=== PATIENT | female | born 1995 | race Caucasian/White ===

== ENCOUNTER 2016-03-31 17:45 | Emergency (ER) | payer BC ==
[2016-03-31 18:19] VITALS: BP 143/78
--- NOTE | 2016-03-31 18:55 | UC ---
Complaint Female HPI - HPI Summary HPI Summary: complaint of burning of urination that started yesterday increased frequency urgency has had blood in urine today denies fever and chills denies back pain, and abdmoinal pain hasn't tried any medication for pain - History Of Current Complaint Chief Complaint: UCGU Stated Complaint: URINARY Time Seen by Provider: 03/31/16 18:32 Hx Obtained From: Patient Hx Last Menstrual Period: 03/25/16 - Allergies/Home Medications Allergies/Adverse Reactions: Allergies Allergy/AdvReac Type Severity Reaction Status Date / Time Shellfish Allergy Allergy Anaphylatic Verified 03/31/16 18:19 Shock Home Medications: Home Medications Hydrochlorothiazide [Microzide-] 12.5 mg PO DAILY 03/31/16 [History Confirmed ] Norgestimate-Ethinyl Estradiol [Trinessa 0.18/0.215/0.25 mg-35 Mcg] 1 tab PO DAILY 03/31/16 [History Confirmed 03/31/16] PMH/Surg Hx/FS Hx/Imm Hx Previously Healthy: Yes Endocrine History Of: Denies: Diabetes, Thyroid Disease Cardiovascular History Of: Reports: Hypertension Denies: Cardiac Disorders Respiratory History Of: Reports: Asthma - Surgical History Surgical History: Yes Surgery Procedure, Year, and Place: right shoulder - Family History Known Family History: Negative: Cardiac Disease, Hypertension, Diabetes - Social History Occupation: Student Lives: With Family Alcohol Use: Occasionally Substance Use Type: None Smoking Status (MU): Never Smoked Tobacco - Immunization History Vaccination Up to Date: Yes Review of Systems Constitutional: Negative Skin: Negative Eyes: Negative ENT: Negative Respiratory: Negative Cardiovascular: Negative Gastrointestinal: Abdominal Pain Genitourinary: Dysuria, Hematuria, Frequency, Urgency Motor: Negative Neurovascular: Negative Musculoskeletal: Negative Neurological: Negative Psychological: Negative All Other Systems Reviewed And Are Negative: Yes Physical Exam Triage Information Reviewed: Yes Appearance: No Pain Distress, Well-Nourished Vital Signs: Initial Vital Signs Temp 98.8 F 03/31/16 18:12 Pulse 128 03/31/16 18:12 Resp 18 03/31/16 18:12 BP 143/78 03/31/16 18:12 Pulse Ox 97 03/31/16 18:12 Vital Signs Reviewed: Yes Eyes: Positive: Conjunctiva Clear ENT: Positive: Normal ENT inspection Neck: Positive: No Lymphadenopathy Respiratory: Positive: Lungs clear, Normal breath sounds, No respiratory distress Cardiovascular: Positive: RRR, No Murmur, Pulses Normal Abdomen Description: Positive: Nontender, Soft. Negative: CVA Tenderness (R), CVA Tenderness (L), Distended, Guarding Bowel Sounds: Positive: Present Musculoskeletal: Positive: No Edema Neurological: Positive: Alert Psychological Exam: Normal Skin Exam: Normal Complaint Female Dx - Course Course Of Treatment: exam completed - Differential Dx/Diagnosis Differential Diagnosis/HQI/PQRI: Urinary Tract Infection Provider Diagnoses: UTI Discharge - Discharge Plan Condition: Stable Disposition: HOME Prescriptions: Nitrofurantoin Monohyd Macro [Macrobid] 100 mg PO BID #10 cap Phenazopyridine TAB* [Pyridium TAB*] 100 mg PO TID #6 tab Patient Education Materials: Urinary Tract Infection in Women (ED) Referrals: Soy Gonzales MD [Primary Care Provider] - Additional Instructions: Please take antibiotic as directed. Increase fluids and rest Take acetaminophen for fever or pain Please review your discharge instructions. If your symptoms do not improve please call your primary care provider or return to urgent care
== END 2016-03-31 19:03 | disposition home or self-care (01) ==
LOC: UCCORT 17:45
DX: N39.0 Urinary tract infection, site not specified (principal); R31.9 Hematuria, unspecified
CPT/HCPCS: 87077; 87086; 87186; 99202; G0463

== ENCOUNTER 2016-08-12 15:46 | Emergency (ER) | payer BC ==
--- NOTE | 2016-08-12 17:17 | UC ---
Complaint Female HPI - HPI Summary HPI Summary: 20 female presents with complaints of urinary burning, frequency and odor in the morning upon waking. Patient has been experiencing these symptoms, that get better throughout the day for the past 3 days. She denies genitalia or vaginal symptoms. No discharge. No fever/chills or back pain. Denies abdominal pain, nausea, vomiting. Admits to have HTN. No other PMHx. She did however take a test 08/09/16 which was positive. LMP was 07/06/16. She just wanted to double check with another one since she was checking for UTI anyways. - History Of Current Complaint Chief Complaint: UCGU Stated Complaint: URINARY COMPLAINT Time Seen by Provider: 08/12/16 16:44 Hx Obtained From: Patient Hx Last Menstrual Period: 07/06/16 ?: Yes Onset/Duration: Sudden Onset, Lasting Days - 3 Timing: Intermittent - only in the morning, first urination upon waking Severity Initially: Mild Severity Currently: Mild Pain Intensity: 1 Pain Scale Used: 0-10 Numeric Character: Burning Aggravating Factor(s): Urination Alleviating Factor(s): Nothing - as time goes on throughout day, symptoms improve Associated Signs And Symptoms: Positive: Negative - Allergies/Home Medications Allergies/Adverse Reactions: Allergies Allergy/AdvReac Type Severity Reaction Status Date / Time Shellfish Allergy Allergy Anaphylatic Verified 08/12/16 16:53 Shock PMH/Surg Hx/FS Hx/Imm Hx Cardiovascular History: Hypertension - Surgical History Surgical History: Yes Surgery Procedure, Year, and Place: right shoulder - Family History Known Family History: Negative: Cardiac Disease, Hypertension, Diabetes - Social History Alcohol Use: Occasionally Substance Use Type: None Smoking Status (MU): Never Smoked Tobacco - Immunization History Vaccination Up to Date: Yes Review of Systems Constitutional: Negative Skin: Negative Respiratory: Negative Cardiovascular: Negative Gastrointestinal: Negative Genitourinary: Dysuria, Frequency Neurovascular: Negative Neurological: Negative All Other Systems Reviewed And Are Negative: Yes Physical Exam Triage Information Reviewed: Yes Appearance: Well-Appearing, No Pain Distress, Well-Nourished Vital Signs: Initial Vital Signs Temp 98.9 F 08/12/16 16:48 Pulse 96 08/12/16 16:48 Resp 16 08/12/16 16:48 BP 157/82 08/12/16 16:48 Pulse Ox 98 08/12/16 16:48 BP elevated. patient has HTN that is medicated typically however after taking test 08/09/16 and result was positive she has not taken it. has appointment with OBGYN to discuss this next week. BP re-checked prior to d/c at was 124/71. Vital Signs Reviewed: Yes Eyes: Positive: Conjunctiva Clear ENT: Positive: Normal ENT inspection, Hearing grossly normal Neck: Positive: Supple, Nontender Respiratory: Positive: Chest non-tender, Lungs clear, Normal breath sounds, No respiratory distress, No accessory muscle use Cardiovascular: Positive: RRR, No Murmur, Pulses Normal Abdomen Description: Positive: Nontender, No Organomegaly, Soft. Negative: Bruit, CVA Tenderness (R), CVA Tenderness (L), Distended, Guarding, Peritoneal Signs Bowel Sounds: Positive: Present Musculoskeletal: Positive: Strength Intact, ROM Intact, No Edema Neurological: Positive: Alert Skin Exam: Normal - Additional Comments deferred pelvic due to no symptoms Complaint Female Dx - Course Course Of Treatment: urinalysis and urine ordered. urinalysis positive for tace blood and leukocyte however nothing that required antibiotic treatment at this time. will wait for culture results to determine if antibiotic is required. increase fluids. confirmed and positive. Has appointment with OBGYN next week. Aware of worsening signs and symptoms of UTI. Follow up PCP. No concern of any other etiology at this time. - Differential Dx/Diagnosis Differential Diagnosis/HQI/PQRI: , Urinary Tract Infection, Other Provider Diagnoses: , dysuria Discharge - Discharge Plan Condition: Stable Disposition: HOME Patient Education Materials: (ED), Dysuria (ED) Referrals: Soy Gonzales MD [Primary Care Provider] - Additional Instructions: Drink plenty of fluids. You will hear from our office if you show signs of a urinary tract infection that needs to be treated with antibiotics within the next 2 days. If your symptoms worsen or new symptoms develop such as fever/chills, increasing pain, burning frequency or back pain please return/seek medical attention promptly.
[2016-08-12 17:40] VITALS: BP 124/71
--- NOTE | 2016-08-14 08:48 | UC ---
Progress - Progress Note Progress Note: please call the pt, with culture results, will ERx Keflex 3 x per day for 10 days follow up with your pcp as needed
== END 2016-08-12 17:40 | disposition home or self-care (01) ==
LOC: UCCORT 15:46
DX: O26.899 Other specified pregnancy related conditions, unspecified trimester (principal); R30.0 Dysuria; O10.919 Unspecified pre-existing hypertension complicating pregnancy, unspecified trimester; Z3A.00 Weeks of gestation of pregnancy not specified
CPT/HCPCS: 81003; 84702; 87077; 87086; 87186; 99212; G0463

== ENCOUNTER 2017-01-03 10:16 | Emergency (ER) | payer BC ==
[2017-01-03 11:06] VITALS: BP 126/74
--- NOTE | 2017-01-03 11:06 | UC ---
Complaint Female HPI - HPI Summary HPI Summary: Per information security engineer "Cloudy urine, lower abdominal pain, & right flank pain over the last couple of days. Pt is 25 weeks . " She started having this pain 3 days ago. constant 3/10. pressure is low abdomen. no dysuruia, no hematuria. no fever. baby moving very well, at least 10x/hr. no bleeding or spotting. has been nml. had spotting at 20 wks that was worked up w/ US. spotting resolved. Started having CTXs upper abdomen on 12/29. she called OB and they told her it was nml maricruz plunkett and not to worry. those have increased in intensity but resolve on own. BF drove her and is waiting outside. - History Of Current Complaint Chief Complaint: UCGU Stated Complaint: URINARY Time Seen by Provider: 01/03/17 11:04 Hx Last Menstrual Period: 07/03/16 - Allergies/Home Medications Allergies/Adverse Reactions: Allergies Allergy/AdvReac Type Severity Reaction Status Date / Time Gluten Meal Allergy GI Upset Verified 01/03/17 10:36 Shellfish Allergy Allergy Anaphylatic Verified 01/03/17 10:36 Shock Home Medications: Home Medications Acetaminophen TAB* [Tylenol TAB*] 650 mg PO Q4H PRN 01/03/17 [History Confirmed 01/03/17] Vitamin TAB* 1 tab PO DAILY 01/03/17 [History Confirmed 01/03/17] PMH/Surg Hx/FS Hx/Imm Hx Previously Healthy: Yes - Surgical History Surgical History: Yes Surgery Procedure, Year, and Place: right shoulder 2010, tonsillectomy 2000 - Family History Known Family History: Negative: Cardiac Disease, Hypertension, Diabetes - Social History Alcohol Use: None Substance Use Type: None Smoking Status (MU): Never Smoked Tobacco - Immunization History Vaccination Up to Date: Yes Review of Systems Constitutional: Negative Skin: Negative Eyes: Negative ENT: Negative Respiratory: Negative Cardiovascular: Negative Gastrointestinal: Abdominal Pain Genitourinary: Negative Motor: Negative Neurovascular: Negative Musculoskeletal: Negative Neurological: Negative Psychological: Negative Is Patient Immunocompromised?: No All Other Systems Reviewed And Are Negative: Yes Physical Exam Triage Information Reviewed: Yes Appearance: Well-Appearing, No Pain Distress, Well-Nourished - very pleasant Vital Signs: Initial Vital Signs Temp 97.7 F 01/03/17 10:37 Pulse 91 01/03/17 10:37 Resp 16 01/03/17 10:37 BP 126/74 01/03/17 10:37 Pulse Ox 99 01/03/17 10:37 Vital Signs Reviewed: Yes Eye Exam: Normal ENT Exam: Normal Dental Exam: Normal Neck exam: Normal Neck: Positive: Supple, Nontender, No Lymphadenopathy Respiratory Exam: Normal Respiratory: Positive: Lungs clear, Normal breath sounds, No respiratory distress, No accessory muscle use Cardiovascular Exam: Normal Cardiovascular: Positive: RRR, No Murmur, Pulses Normal Abdomen Description: Positive: Soft, Other: - gravid. tender at suprapubis at 5/ 10 pain.. Negative: CVA Tenderness (R), CVA Tenderness (L), Distended Bowel Sounds: Positive: Present Musculoskeletal Exam: Normal Neurological Exam: Normal Psychological Exam: Normal Skin Exam: Normal Complaint Female Dx - Course Course Of Treatment: Gravid at 25 weeks with constant pressure. Adv eval at L&D at [facility] which is where her OB is through. Advised not to stop at home or store and go directly to ER. she is very agreeable. I spoke with pt and explained d/c plan and she was very agreeable. I was in an emergency for another pt and Ninoska Durán was kind enough to d/c Maria Elena and re-iterate that she should go dircetly to ER and we would mail her the d/c ppwk. I printed d/c ppwk and mailed by staff. - Differential Dx/Diagnosis Differential Diagnosis/HQI/PQRI: Urinary Tract Infection, Other - placenta abnormalities Provider Diagnoses: lower abdominal pain in female. - Physician Notifications Discussed Patient Care With: Ninoska Durán CUFF SETTER spoke with Dr Blancas at [facility] ED to notify Time Discussed With Above Provider: 11:51 Discharge - Discharge Plan Condition: Stable Disposition: OTHER Discharge Disposition Comment: to ER to trx to L&D Patient Education Materials: Abdominal Pain in (ED) Referrals: Graciela Carranza [Primary Care Provider] - Soy Gonzales MD [Medical Doctor] - Additional Instructions: We instructed you to go directly to the ER to transfer to L&D. The urine sample was normal without any sign of infection as the cause of your lower abdominal/ pelvic pressure. I explained this information to you in person but got pulled away for an emergency. Staff explained to you that you could be discharged adn we would mail the discharge instructions to you.
== END 2017-01-03 11:50 ==
LOC: UCCORT 10:16
DX: O26.892 Other specified pregnancy related conditions, second trimester (principal); Z3A.22 22 weeks gestation of pregnancy; Z91.013 Allergy to seafood; Z91.02 Food additives allergy status
CPT/HCPCS: 81003; 99212; G0463

== ENCOUNTER 2017-06-14 17:59 | Emergency (ER) | payer OTHER, BC ==
[2017-06-14 18:43] VITALS: BP 120/83
--- NOTE | 2017-06-14 18:57 | UC ---
Complaint Female HPI - HPI Summary HPI Summary: C/O dysuria with decreased frequency like typical UTI, but no frequency urgency. Some nausea and vomiting but no diarrhea. - History Of Current Complaint Stated Complaint: URINARY Time Seen by Provider: 06/14/17 18:40 Hx Obtained From: Patient Hx Last Menstrual Period: 06/02/17 ?: No Onset/Duration: Sudden Onset, Lasting Days - 2, Still Present Timing: Intermittent - just with urination Pain Intensity: 0 Character: Sharp Aggravating Factor(s): Urination Associated Signs And Symptoms: Positive: Nausea, Vomiting(# Of Episodes =) - Allergies/Home Medications Allergies/Adverse Reactions: Allergies Allergy/AdvReac Type Severity Reaction Status Date / Time gluten Allergy GI Upset Verified 06/14/17 18:39 shellfish derived Allergy Anaphylatic Verified 06/14/17 18:39 Shock Home Medications: Home Medications Hydrochlorothiazide TAB* [Hydrodiuril TAB*] 25 mg PO DAILY 06/14/17 [History Confirmed 06/14/17] Oral Contraceptive 1 tab PO DAILY 06/14/17 [History Confirmed 06/14/17] PMH/Surg Hx/FS Hx/Imm Hx Respiratory History: Asthma - Surgical History Surgical History: Yes Surgery Procedure, Year, and Place: right shoulder 2010, tonsillectomy 2000, c- section 04/16/17 - Family History Known Family History: Positive: Cardiac Disease, Hypertension Negative: Diabetes - Social History Occupation: Employed Part-time Lives: With Family Alcohol Use: Rare Substance Use Type: None Smoking Status (MU): Never Smoked Tobacco Have You Smoked in the Last Year: No - Immunization History Vaccination Up to Date: Yes Review of Systems Gastrointestinal: Vomiting, Nausea Genitourinary: Dysuria Is Patient Immunocompromised?: No All Other Systems Reviewed And Are Negative: Yes Physical Exam Triage Information Reviewed: Yes Appearance: Well-Appearing, No Pain Distress, Well-Nourished Vital Signs: Initial Vital Signs Temp 98 F 06/14/17 18:34 Pulse 87 06/14/17 18:34 Resp 16 06/14/17 18:34 BP 120/83 06/14/17 18:34 Pulse Ox 99 06/14/17 18:34 Vital Signs Reviewed: Yes Eyes: Positive: Conjunctiva Clear ENT: Positive: Pharynx normal, TMs normal Neck exam: Normal Respiratory Exam: Normal Cardiovascular Exam: Normal Abdomen Description: Negative: Nontender - suprapubic tenderness, McBurney's Point Tenderness, Peritoneal Signs Bowel Sounds: Positive: Present Musculoskeletal Exam: Normal Neurological Exam: Normal Psychological Exam: Normal Skin Exam: Normal Complaint Female Dx - Differential Dx/Diagnosis Differential Diagnosis/HQI/PQRI: Appendicitis, Cervicitis, Urinary Tract Infection Provider Diagnoses: Acute cystitis Discharge - Sign-Out/Discharge Documenting (check all that apply): Discharge - Discharge Plan Condition: Stable Disposition: HOME Prescriptions: Nitrofurantoin Macrocrystals* [Macrodantin*] 100 mg PO BID #10 cap Patient Education Materials: Urinary Tract Infection in Women (ED) Referrals: Graciela Carranza [Primary Care Provider] - Additional Instructions: If the urine culture is negative, sometimes a yeast infection can cause these symptoms and yeast treatment might be helpful. - Billing Disposition and Condition Condition: STABLE Disposition: HOME
[2017-06-14] MEDS ORDERED: Nitrofurantoin Macrocrystals* 100 MG CAP PO ONE (19:03)
[2017-06-14] MEDS ORDERED: Nitrofurantoin Macrocrystals* 50 MG CAP PO ONE (19:06)
== END 2017-06-14 19:13 | disposition home or self-care (01) ==
LOC: UCCORT 17:59
DX: N30.00 Acute cystitis without hematuria (principal)
CPT/HCPCS: 81003; 87077; 87086; 87186; 99212; A9270-GY; G0463

== ENCOUNTER 2017-07-07 07:03 | Emergency (ER) | payer OTHER, BC ==
[2017-07-07 07:22] VITALS: BP 127/78
--- NOTE | 2017-07-07 07:42 | UC ---
Eye Complaint HPI - HPI Summary HPI Summary: bilateral eye redness x 1 day + whitish discharge no eye pain, no photophobia , no change in vision mils cold sx - History of Current Complaint Chief Complaint: UCEye Stated Complaint: BILATERAL EYE COMPLAINT Time Seen by Provider: 07/07/17 07:33 Hx Obtained From: Patient Hx Last Menstrual Period: 06/08/17 Onset/Duration: Gradual Onset, Lasting Days - 1, Still Present Timing: Constant Severity Initially: Moderate Severity Currently: Moderate Pain Intensity: 0 Pain Scale Used: 0-10 Numeric Location of Injury: Conjunctiva Aggravating Factor(s): Nothing Alleviating Factor(s): Nothing Associated Signs And Symptoms: Positive: Drainage (Purulent). Negative: Photophobia, Vision Impairment Bilateral, Vision Impairment Right, Vision Impairment Left, Fever, Swelling - Allergies/Home Medications Allergies/Adverse Reactions: Allergies Allergy/AdvReac Type Severity Reaction Status Date / Time gluten Allergy GI Upset Verified 07/07/17 07:19 shellfish derived Allergy Anaphylatic Verified 07/07/17 07:19 Shock PMH/Surg Hx/FS Hx/Imm Hx Previously Healthy: Yes - Surgical History Surgical History: Yes Surgery Procedure, Year, and Place: right shoulder 2010, tonsillectomy 2000, c- section 04/16/17 - Family History Known Family History: Positive: Cardiac Disease, Hypertension Negative: Diabetes - Social History Alcohol Use: Rare Substance Use Type: None Smoking Status (MU): Never Smoked Tobacco Have You Smoked in the Last Year: No - Immunization History Vaccination Up to Date: Yes Review of Systems Constitutional: Negative Skin: Negative Eyes: Drainage, Eye Redness ENT: Nasal Discharge Respiratory: Negative Cardiovascular: Negative Gastrointestinal: Negative Is Patient Immunocompromised?: No All Other Systems Reviewed And Are Negative: Yes Physical Exam Triage Information Reviewed: Yes Appearance: Well-Appearing, No Pain Distress, Well-Nourished Vital Signs: Initial Vital Signs Temp 98 F 07/07/17 07:17 Pulse 87 07/07/17 07:17 Resp 16 07/07/17 07:17 BP 127/78 07/07/17 07:17 Pulse Ox 98 07/07/17 07:17 Vital Signs Reviewed: Yes Eye Exam: Normal Eyes: Positive: Conjunctiva Inflamed - bilateral, Discharge - bilateral ENT Exam: Normal ENT: Positive: Normal ENT inspection, Hearing grossly normal, Pharynx normal Neck: Positive: Supple, Nontender, No Lymphadenopathy Respiratory: Positive: Chest non-tender, Lungs clear, Normal breath sounds Cardiovascular: Positive: RRR, No Murmur, Pulses Normal Skin Exam: Normal Eye Complaint Course/Dx - Differential Dx/Diagnosis Provider Diagnoses: Conjunctivitis Discharge - Sign-Out/Discharge Documenting (check all that apply): Discharge/Admit/Transfer - Discharge Plan Condition: Stable Disposition: HOME Prescriptions: Gentamicin 0.3% OPHTH.SOLN* 1 drop BOTH EYES Q4H #1 btl Patient Education Materials: Conjunctivitis (ED) Referrals: Shelby Galvan PA [Primary Care Provider] - 7 Days - Billing Disposition and Condition Condition: STABLE Disposition: HOME
== END 2017-07-07 07:38 | disposition home or self-care (01) ==
LOC: UCCORT 07:03
DX: H10.9 Unspecified conjunctivitis (principal)
CPT/HCPCS: 99212; G0463

== ENCOUNTER 2023-06-08 07:48 | Observation (INO) ==
[2023-06-08] MEDS: Ondansetron 4 mg VIAL 2 MG/ML 2 ml VIAL IV ONE ×2 (08:24→11:16)
[2023-06-08] MEDS: Famotidine IV 10 MG/ML 2 ml VIAL (20 mg) IV SLOW PU ONE (08:24)
[2023-06-08] MEDS: Lactated Ringers 1000 ml BAG 1,000 ML IV ONE (08:25)
[2023-06-08] MEDS: Sucralfate 1 gm SUSP 1 GM/10 ML UDC PO ONE ×3 (08:25→17:45)
[2023-06-08 08:37] LABS: ABS Eosinophils 0.1 10^3/uL (0.0-0.5); ABS Lymphocytes 1.8 10^3/uL (1.0-4.8); ABS Monocytes 0.3 10^3/uL (0.0-0.9); ABS Neutrophils 2.9 10^3/uL (1.5-7.6); Eosinophil % 2.4 %; Hematocrit 39.2 % (35-45); Hemoglobin 13.9 g/dL (11.5-14.3); Lymphocyte % 34.5 %; Mean Corpuscular Hgb Conc 35.5 g/dL (31-36); Mean Corpuscular Volume 90.1 fL (80-97); Nucleated Red Blood Cells % 0.1 %/100WBC (0.0-0.8); Platelet Count 309 10^3/uL (150-450); Red Blood Count 4.35 10^6/uL (3.63-4.92); Red Cell Distribution Width 12.8 % (12-17); White Blood Count 5.1 10^3/uL (3.8-11.8)
[2023-06-08 08:56] LABS: INR 1.06 (0.83-1.13)
[2023-06-08 09:13] LABS: ALT 12 U/L (7-52); AST 15 U/L (13-39); Albumin 4.3 g/dL (3.2-5.2); Alkaline Phosphatase 67 U/L (35-149); Anion Gap 8 mmol/L (2-16); Blood Urea Nitrogen 11 mg/dL (6-24); CO2 Carbon Dioxide 25 mmol/L (22-32); Chloride 106 mmol/L (101-111); Creatinine, Serum 0.95 mg/dL (0.51-0.95); Globulin 2.2 g/dL (2-4); Glucose 89 mg/dL (70-100); Lipase 26 U/L (11.0-82.0); Potassium 4.1 mmol/L (3.5-5.0); Sodium 139 mmol/L (135-145); Total Bilirubin 0.4 mg/dL (0.2-1.0); Total Protein 6.5 g/dL (6.4-8.9); eGFR CKD-EPI 84.2 (>60)
[2023-06-08 09:19] LABS: HCG Pregnancy < 0.60 mIU/mL
[2023-06-08] MEDS: Morphine 4 MG/ML VIAL (1 ml) IV ONE ×3 (09:59→16:40)
[2023-06-08] MEDS: Al Hydrox/Mg Hydrox/Simet LIQ 30 ML UDC PO ONE (09:59)
[2023-06-08] MEDS: Iohexol 300 (CONTRAST) 10 ML SDV IV ONE (12:23)
[2023-06-08] MEDS ORDERED: Famotidine IV 10 MG/ML 2 ml VIAL (20 mg) IV SLOW PU ONE (12:54)
[2023-06-08] MEDS: Pantoprazole VIAL 40 MG VIAL IV ONE (13:08)
[2023-06-08] MEDS ORDERED: Levalbuterol HFA INHALER MDI INH PRN (16:14)
[2023-06-08] MEDS ORDERED: UBROGEPANT 100 MG PO PRN (16:14)
[2023-06-08] MEDS ORDERED: NF: Metronidazole (TOPICAL)(NF) 45 GM TUBE TOPICAL PRN (16:14)
[2023-06-08] MEDS ORDERED: GALCANEZUMAB GNLM 120 MG/ML SUBCUT SCH (16:15)
[2023-06-08] MEDS: Al Hydrox/Mg Hydrox/Simet LIQ 30 ML UDC PO PRN (16:41)
[2023-06-08] MEDS: PERFLUOROHEXYLOCTANE BOTH EYES SCH (17:46)
[2023-06-08] MEDS: Acetaminophen IV 1 GM/100ML 1,000 MG/100 ML BAG IV SCH (18:26)
[2023-06-08] MEDS: Lactated Ringers 1000 ml BAG 1,000 ML IV SCH (18:26)
[2023-06-08] MEDS: Ondansetron 4 mg VIAL 2 MG/ML 2 ml VIAL IV PRN (18:31)
[2023-06-08] MEDS: Famotidine IV 10 MG/ML 2 ml VIAL (20 mg) IV SLOW PU PRN (19:44)
[2023-06-08] MEDS: Pantoprazole VIAL 40 MG VIAL IV SCH (19:44)
[2023-06-08] MEDS: FLUOCINONIDE 0.05% TOPICAL SCH (19:57)
[2023-06-08] MEDS ORDERED: Famotidine IV 10 MG/ML 2 ml VIAL (20 mg) IV SLOW PU SCH (21:00)
[2023-06-08] MEDS ORDERED: buPROPion SR 100 mg TAB.SR PO SCH (21:00)
[2023-06-09 06:07] LABS: ABS Eosinophils 0.1 10^3/uL (0.0-0.5); ABS Lymphocytes 2.7 10^3/uL (1.0-4.8); ABS Monocytes 0.3 10^3/uL (0.0-0.9); ABS Neutrophils 1.8 10^3/uL (1.5-7.6); Eosinophil % 2.9 %; Hematocrit 33.9 % (35-45); Hemoglobin 12.2 g/dL (11.5-14.3); Lymphocyte % 54.4 %; Mean Corpuscular Hemoglobin 32.4 pg (27-33); Mean Corpuscular Volume 90.2 fL (80-97); Mean Platelet Volume 7.2 fL (7.5-11.2); Platelet Count 256 10^3/uL (150-450); Red Blood Count 3.76 10^6/uL (3.63-4.92); Red Cell Distribution Width 12.8 % (12-17); White Blood Count 4.9 10^3/uL (3.8-11.8)
[2023-06-09 06:20] LABS: Albumin 3.5 g/dL (3.2-5.2); Albumin/Globulin Ratio 1.9 (1-3); Calcium 8.1 mg/dL (8.6-10.3); Creatinine, Serum 0.94 mg/dL (0.51-0.95); Globulin 1.8 g/dL (2-4); Magnesium 1.8 mg/dL (1.9-2.7); Potassium 3.8 mmol/L (3.5-5.0); Total Bilirubin 0.5 mg/dL (0.2-1.0); Total Protein 5.3 g/dL (6.4-8.9); eGFR CKD-EPI 85.3 (>60)
[2023-06-09] MEDS: Morphine 2 MG/ML SYRINGE IV PRN (08:39)
[2023-06-09] MEDS ORDERED: Lidocaine 2% PF 5 ML VIAL ONE (13:34)
[2023-06-09] MEDS ORDERED: Midazolam 2 mg/2 ml VIAL 1 mg/ml 2 ml VIAL (2 mg) ONE (13:34)
[2023-06-09] MEDS ORDERED: fentaNYL 100 mcg/2 ml 50 MCG/ML VIAL ONE (13:50)
[2023-06-09 16:47] VITALS: BP 115/74
[2023-06-09] MEDS: buPROPion SR 200 mg TAB.SR PO SCH (16:54)
[2023-06-09] MEDS: DULoxetine DR 20 mg CAP PO SCH (16:54)
== END 2023-06-09 17:50 | disposition home or self-care (01) ==
LOC: EDHOLD 07:48 → ED 07:48 → EDHOLD 16:38 → MED 17:17
PROVIDERS: ADMIT Internal Medicine; ATTEND Internal Medicine
PROC: O.GIEGD (2023-06-09 14:10)